=== PATIENT | female | born 1970 ===

== ENCOUNTER 2019-02-08 11:41 | Outpatient (CLI) | payer OTHER | END 2019-02-08 11:42 | disposition home or self-care (01) | LOC: C.MAMMO 11:41 | DX: Z12.31 Encounter for screening mammogram for malignant neoplasm of breast (principal) ==

== ENCOUNTER 2019-03-13 11:37 | Outpatient (CLI) | payer OTHER | END 2019-03-13 11:38 | disposition home or self-care (01) | LOC: C.MAMMO 11:37 ==